=== PATIENT | male | born 1970 | race Caucasian/White ===

== ENCOUNTER → 2024-03-24 08:11 | Outpatient (REF) | payer BC, SELFPAY | LOC: RCS 08:11 | PROVIDERS: ATTENDING PHYSICIAN Physician Assistant Medical | DX: R55 Syncope and collapse (principal); R94.31 Abnormal electrocardiogram [ECG] [EKG] | CPT/HCPCS: 93225; 93226 ==

== ENCOUNTER → 2024-04-29 14:57 | Outpatient (REF) | payer BC, SELFPAY | LOC: HWRCS 14:57 | PROVIDERS: ATTENDING PHYSICIAN Student in an Organized Health Care Education/Training Program; FAMILY PHYSICIAN Physician Assistant Medical | DX: R55 Syncope and collapse (principal) | CPT/HCPCS: 93306 ==